=== PATIENT | male | born 1975 | race Two or more races ===

== ENCOUNTER 2025-08-12 19:02 | Emergency (ER) | payer MEDICAID ==
[~2025-08-12] VITALS: Ht 165.1 cm; Wt 69.0 kg
[2025-08-12 19:04] VITALS: O2SAT 98
[2025-08-12 19:15] VITALS: BP 159/89; PULSE 90; RESP 18; TEMP 37.2; O2SAT 99
[2025-08-12 20:29] LABS: CLARITY URINE CLEAR (CLEAR); COLOR URINE YELLOW (YELLOW); GLUCOSE URINE NEGATIVE (NEGATIVE); KETONES URINE NEGATIVE (NEGATIVE); LEUKOCYTE ESTERASE URINE NEGATIVE (NEGATIVE); NITRITE URINE NEGATIVE (NEGATIVE); OCCULT BLOOD URINE NEGATIVE (NEGATIVE); PH URINE 7.5 (4.5-8.0); PROTEIN URINE NEGATIVE (NEGATIVE); SPECIFIC GRAVITY URINE 1.014 (1.005-1.030); UROBILINOGEN URINE 0.2 E.U./dL (0.2-1.0)
== END 2025-08-12 21:46 | disposition home or self-care (01) ==
LOC: ER 19:02
DX: S20.219A Contusion of unspecified front wall of thorax, initial encounter (principal); I10 Essential (primary) hypertension; Z79.899 Other long term (current) drug therapy; W19.XXXA Unspecified fall, initial encounter; Y93.89 Activity, other specified; Y92.89 Other specified places as the place of occurrence of the external cause; Y99.8 Other external cause status
CPT/HCPCS: 71250; 81003; 99284